=== PATIENT | female | born 1955 | race Caucasian/White ===

== ENCOUNTER → 2020-02-12 | Outpatient (CLI) | payer BC ==
--- NOTE | 2020-02-13 17:24 | RAD ---
DATE: 02/12/2020 3:39 PM EXAM: DIGITAL SCREEN BILAT W/CAD HISTORY: Screening COMPARISON: 10/06/2017, 04/17/2015, 02/27/2014 Bilateral full field craniocaudal and mediolateral oblique images were obtained using digital technique. This study was interpreted with the benefit of Computerized Aided Detection (CAD). FINDINGS: Breast Density: HETERO The breast parenchyma Is heterogeneously dense, which could reduce sensitivity of mammography. Breast parenchyma level C Negative right mammogram. Left mammogram shows a focal asymmetry in the posterior upper outer quadrant that needs additional imaging with spot compression views in the CC and MLO projections as well as a full-field ML view and targeted left breast ultrasound. IMPRESSION: Left breast focal asymmetry, findings for which additional imaging is advised. BI-RADS CATEGORY: 0 INCOMPLETE: NEEDS ADDITIONAL IMAGING EVALUATION AND/OR PRIOR MAMMOGRAMS FOR COMPARISON. RECOMMENDED FOLLOW-UP: ADD ADDITIONAL IMAGING The patient will be contacted to return for additional imaging and a supplemental report will follow. PQRS compliance statement: Patient information was entered into a reminder system with a target due date for the next mammogram. Mammography is a sensitive method for finding small breast cancers, but it does not detect them all and is not a substitute for careful clinical examination. A negative mammogram does not negate a clinically suspicious finding and should not result in delay in biopsying a clinically suspicious abnormality. "Our facility is accredited by the [employer] Mammography Program."
== END ==
LOC: MAMMO 15:16
PROVIDERS: ATTEND Family Medicine
DX: Z12.31 Encounter for screening mammogram for malignant neoplasm of breast (principal)
CPT/HCPCS: 77067

== ENCOUNTER → 2020-02-26 | Outpatient (CLI) | payer BC ==
--- NOTE | 2020-02-26 16:50 | RAD ---
Examination: 1. Left digital diagnostic mammogram. 2. Limited left breast ultrasound. INDICATION: Screening recall for focal asymmetry in the upper outer quadrant posterior left breast. COMPARISON: Mammogram of 02/12/2020, 10/06/2017. TECHNIQUE: A full field left ML view was obtained and reviewed with computer-aided detection. In addition, spot compression views of the left breast in the CC and MLO projections were obtained. Targeted ultrasound of the posterior upper outer quadrant left breast was subsequently pursued. FINDINGS: Heterogeneously dense breast parenchyma. The focal asymmetry in the posterior upper outer left breast did not fully dissipate with additional mammographic views although compared with the 2018 examination, it appeared to have mildly diminished in size and density. Targeted ultrasound of the posterior upper outer left breast showed a ridge of dense fibroglandular t issue with no suspicious sonographic findings. IMPRESSION: Benign findings on targeted left breast ultrasound and diagnostic mammographic views. No evidence of malignancy. BI-RADS Category 2 Benign findings Recommend return to routine screening. Patient entered into a reminder system for target due date for next mammogram Electronically signed by: Tiburcio Dc MD (02/26/2020 4:48 PM) [id number]
== END ==
LOC: MAMMO 13:57
PROVIDERS: ATTEND Family Medicine
DX: R92.2 Inconclusive mammogram (principal)
CPT/HCPCS: 76641; 77065

== ENCOUNTER 2021-05-28 14:57 | Emergency (ER) | payer BC ==
[~2021-05-28] VITALS: Ht 165.1 cm; Wt 56.6 kg
--- NOTE | 2021-05-28 16:25 | RAD ---
Exam: Left lower extremity venous duplex study INDICATION: Leg swelling TECHNIQUE: Using a combination of real-time ultrasound imaging and color-flow and pulse Doppler imagi ng techniques along with graded compression and augmentation, duplex evaluation of the deep venous sy stems of leftlower extremity was performed. Multiple images were obtained. Findings: There is no sonographic evidence for deep venous thrombosis involving the visualized deep venous stru ctures of the left lower extremity. Martines's cyst at the popliteal fossa. IMPRESSION: No acute DVT in the left lower extremities. Electronically signed by: Page Gasca MD (05/28/2021 4:22 PM) THADDE[facility]
--- NOTE | 2021-05-28 16:44 | PHYS DOC ---
Past History Past Medical History: Seizure Past Surgical History: No Surgical History, Other Smoking: Non-smoker Alcohol Use: None Drug Use: None General Adult EDM: Chief Complaint: LOWER EXTREMITY SWELLING HPI: HPI: Patient is a 66 year old female who presents with left posterior knee pain that began about a week ago. Patient states that she attempted to treat her pain with a knee brace, which was unsuccessful. She states that this morning, she noticed that her left lower leg was swollen compared to the right. Patient denies history of DVT or PE, clotting disorders, chest pain, palpitations, shortness of breath, cough. Review of Systems: Review of Systems: Constitutional: Denies fever, chills or generalized weakness Eyes: Denies change in visual acuity, visual field deficits or discharge HENT: Denies ear pain, nasal congestion or sore throat Respiratory: See HPI Cardiovascular: See HPI GI: Denies abdominal pain, nausea, vomiting, bloody stools or diarrhea : Denies dysuria or hematuria Musculoskeletal: See HPI Integument: Denies rash or other skin lesion Neurologic: Denies headache, focal weakness or sensory changes Allergies: Allergies: Allergies Coded Allergies Type Severity Reaction Last Updated Verified butorphanol Allergy Unknown 05/28/21 Yes Physical Exam: PE: Constitutional: Well developed, well nourished, no acute distress, non-toxic appearance. HENT: Normocephalic, atraumatic, bilateral external ears normal, nose normal. Eyes: EOMI, conjunctiva normal, no discharge. Neck: Normal range of motion, no stridor. Skin: Warm, dry, no erythema, no rash. Extremities: Posterior knee tenderness at the medial aspect with palpable mass that is well-circumscribed, negative Homans' sign. Extremities otherwise no tenderness, no cyanosis, no clubbing, ROM intact, no edema. Neurologic: Alert and oriented x4, no focal deficits noted. Current Patient Data: Vital Signs: Vital Signs Date Time Temp Pulse Resp B/P (MAP) Pulse Ox O2 Delivery O2 Flow Rate FiO2 05/28/21 17:11 18 143/80 (101) 98 Room Air 05/28/21 15:23 98.2 78 18 148/93 (111) 99 Room Air Radiology/Procedures: Radiology/Procedures: PROCEDURE: VENOUS LOWER EXTREMITY LEFT Exam: Left lower extremity venous duplex study INDICATION: Leg swelling TECHNIQUE: Using a combination of real-time ultrasound imaging and color-flow and pulse Doppler imaging techniques along with graded compression and augmentation, duplex evaluation of the deep venous systems of leftlower extremity was performed. Multiple images were obtained. Findings: There is no sonographic evidence for deep venous thrombosis involving the visualized deep venous structures of the left lower extremity. Martines's cyst at the popliteal fossa. IMPRESSION: No acute DVT in the left lower extremities. Electronically signed by: Page Gasca MD (05/28/2021 4:22 PM) [facility] Heart Score: C/O Chest Pain: No Course & Med Decision Making: Course & Med Decision Making Pertinent Labs and Imaging studies reviewed. (See chart for details) Patient is a relatively healthy 66-year-old female who presents with left posterior knee pain. Ultrasound ordered to evaluate for DVT versus popliteal cyst. Ultrasound imaging negative for DVT, Martines's cyst visible. Patient was informed of findings and given return precautions. Patient understands and agrees to discharge plan. Dragon Disclaimer: Dragon Disclaimer: This electronic medical record was generated, in whole or in part, using a voice recognition dictation system. Departure Departure: Impression: Primary Impression: Martines's cyst, unruptured Qualified Codes: M71.22 - Synovial cyst of popliteal space [Martines], left knee Disposition: HOME / SELF CARE / HOMELESS Condition: STABLE Referrals: HOMERO WALKER (PCP) Patient Instructions: Martines's Cyst Additional Instructions: EMERGENCY DEPARTMENT GENERAL DISCHARGE INSTRUCTIONS Thank you for coming to [facility] (ED) today and trusting us with you care. We trust that you had a positive experience in our Emergency Department. If you wish to speak to the department management, you may call the director at [phone]. YOUR FOLLOW UP INSTRUCTIONS ARE FOLLOWS: 1. Follow up with your primary care doctor. If you do not have a primary doctor, please ask for a resource list of physicians or clinics that may be able to assist you with follow up care. 2. The emergency provider has interpreted your imaging studies, if any were ordered. The radiology medicaid eligibility specialist also reviewed them. If there is a change in the findings, you will be notified in 48 hours when at all possible. 3. If a lab test or culture has been done, your results will be reviewed and you will be notified if you need a change in treatment. 4. Follow instructions verbalized to you and refer to the printouts if needed. ADDITIONAL INSTRUCTIONS AND INFORMATION: 1. Your care today has been supervised by a physician who is specially trained in emergency care. Many problems require more than one evaluation for a complete diagnosis and treatment. We recommend that you schedule your follow up appointment as recommended to ensure complete treatment of you illness or injury. If you are unable to obtain follow up care and continue to have a problem, or if your condition worsens, we recommend that you return to the ED. 2. We are not able to safely determine your condition over the phone nor are we able to give sound medical advice over the phone. For these safety reasons, if you call for medical advice we will ask you to come to the ED for further evaluation. 3. If you have any questions regarding these discharge instructions please call the ED at [phone]. SAFETY INFORMATION: In the interest of safety, wellness, and injury prevention; we encourage you to wear your seat belt, if you smoke; quite smoking, and we encourage family to use a protective helmet for bicycling and other sporting events that present an increased risk for head injury. IF YOUR SYMPTOMS WORSEN OR NEW SYMPTOMS DEVELOP, OR YOU HAVE CONCERNS ABOUT YOUR CONDITION; OR IF YOUR CONDITION WORSENS WHILE YOU ARE WAITING FOR YOUR FOLLOW UP APPOINTMENT; EITHER CONTACT YOUR PRIMARY CARE DOCTOR, THE PHYSICIAN WHOSE NAME AND NUMBER YOU WERE GIVEN, OR RETURN TO THE ED IMMEDIATELY. ADRIANA SANTIAGO May 28, 2021 16:43
[2021-05-28 17:11] VITALS: BP 143/80
== END 2021-05-28 16:49 | disposition home or self-care (01) ==
LOC: ER 14:57
DX: M71.22 Synovial cyst of popliteal space [Baker], left knee (principal); Z88.8 Allergy status to other drugs, medicaments and biological substances
CPT/HCPCS: 93971; 99284